=== PATIENT | female | born 1975 | race Two or more races ===

== ENCOUNTER 2024-06-10 12:49 | Outpatient (CLI) | payer OTHER | END 2024-06-10 12:59 | disposition home or self-care (01) | LOC: SONOGRAMA 12:49 | PROVIDERS: ATTEND Pathology Anatomic Pathology & Clinical Pathology | DX: E04.2 Nontoxic multinodular goiter (principal); D34 Benign neoplasm of thyroid gland; E06.3 Autoimmune thyroiditis ==